=== PATIENT | female | born 1960 | race Caucasian/White ===

== ENCOUNTER 2021-05-17 13:00 | Observation (INO) | payer OTHER ==
[2021-05-17 14:46] LABS: HEMATOCRIT 22.2 % (32.4-45.2); HEMOGLOBIN 7.1 GM/dL (10.7-15.3); MCH 31.2 pg (25.7-33.7); MCHC 32.2 g/dl (32.0-36.0); MEAN PLT VOLUME 7.7 fl (7.5-11.1); PLATELET COUNT 183 10^3/uL (134-434); RBC 2.29 M/mm3 (3.60-5.2); RDW 17.6 % (11.6-15.6); WHITE BLOOD COUNT 13.2 K/mm3 (4.0-10.0)
[2021-05-17 14:52] LABS: INR 1.03 (0.83-1.09); PROTHROMBIN TIME (PATIENT) 11.8 SEC (9.7-13.0)
[2021-05-17 15:09] LABS: ALBUMIN 2.4 g/dl (3.4-5.0); BLOOD UREA NITROGEN 28.9 mg/dL (7-18); CALCIUM 8.6 mg/dL (8.5-10.1)
[2021-05-17 15:13] LABS: CREATININE 4.4 mg/dL (0.55-1.3)
[2021-05-17 15:14] LABS: BILIRUBIN,TOTAL 0.3 mg/dL (0.2-1); TOT PROT 5.8 g/dl (6.4-8.2)
[2021-05-17 15:39] LABS: ANISOCYTOSIS 2+; MACROCYTOSIS 0; PLATELET ESTIMATE NORMAL; TEAR DROP CELLS 1+
[2021-05-17] MEDS ORDERED: POLYETHYLENE GLYCOL (HEALTHYLAX) 3350 17 GM PACKET PO PRN (21:00)
[2021-05-17] MEDS: INSULIN SLIDING SCALE (NOVOLOG) 1 VIAL SQ SCH (21:38)
[2021-05-18 01:12] VITALS: BMI 36.3
[2021-05-18] MEDS: INSULIN SLIDING SCALE (NOVOLOG) 1 VIAL SQ SCH ×4 (06:37→22:27)
[2021-05-18 09:07] LABS: HEMATOCRIT 23.1 % (32.4-45.2); HEMOGLOBIN 7.4 GM/dL (10.7-15.3); MCH 31.7 pg (25.7-33.7); MCHC 32.2 g/dl (32.0-36.0); MEAN CELL VOLUME 98.2 fl (80-96); MEAN PLT VOLUME 6.9 fl (7.5-11.1); PLATELET COUNT 228 10^3/uL (134-434); RBC 2.35 M/mm3 (3.60-5.2); RDW 17.7 % (11.6-15.6)
[2021-05-18 09:14] LABS: CALCIUM 9.2 mg/dL (8.5-10.1)
[2021-05-18 09:20] LABS: CREATININE 4.9 mg/dL (0.55-1.3); PHOSPHOROUS 4.9 mg/dL (2.5-4.9)
[2021-05-18] MEDS: PANTOPRAZOLE 20 MG TABLET PO SCH (11:08)
[2021-05-18 11:31] LABS: ANISOCYTOSIS 0; HELMET CELLS 0; HOWELL-JOLLY BODIES 0; MACROCYTOSIS 0; OVALOCYTE 0; PLATELET ESTIMATE NORMAL; ROULEAU 0; SICKELED CELLS 0; TARGET CELLS 0; TEAR DROP CELLS 0; TOXIC GRANULATION 0
[2021-05-19] MEDS: INSULIN SLIDING SCALE (NOVOLOG) 1 VIAL SQ SCH ×4 (06:01→21:18)
[2021-05-19 09:32] LABS: HEMATOCRIT 23.6 % (32.4-45.2); HEMOGLOBIN 7.3 GM/dL (10.7-15.3); MCH 30.8 pg (25.7-33.7); MCHC 31.1 g/dl (32.0-36.0); MEAN CELL VOLUME 99.2 fl (80-96); MEAN PLT VOLUME 7.1 fl (7.5-11.1); PLATELET COUNT 258 10^3/uL (134-434); RBC 2.38 M/mm3 (3.60-5.2); RDW 17.8 % (11.6-15.6); WHITE BLOOD COUNT 10.7 K/mm3 (4.0-10.0)
[2021-05-19 10:03] LABS: ALBUMIN 2.4 g/dl (3.4-5.0); CALCIUM 8.5 mg/dL (8.5-10.1)
[2021-05-19 10:04] LABS: BLOOD UREA NITROGEN 43.5 mg/dL (7-18)
[2021-05-19 10:07] LABS: CREATININE 6.2 mg/dL (0.55-1.3)
[2021-05-19 10:08] LABS: BILIRUBIN,TOTAL 0.4 mg/dL (0.2-1); TOT PROT 5.8 g/dl (6.4-8.2)
[2021-05-19] MEDS: PANTOPRAZOLE 20 MG TABLET PO SCH (10:37)
[2021-05-19 11:29] LABS: ANISOCYTOSIS 2+; MACROCYTOSIS 0; OVALOCYTE 1+; PLATELET ESTIMATE NORMAL
[2021-05-20] MEDS: INSULIN SLIDING SCALE (NOVOLOG) 1 VIAL SQ SCH ×4 (06:01→22:14)
[2021-05-20] MEDS ORDERED: ALTEPLASE (CATHFLO) 2 MG/2 ML VIAL NR ONE ×2 (06:15)
[2021-05-20 09:17] LABS: HEMATOCRIT 23.5 % (32.4-45.2); HEMOGLOBIN 7.4 GM/dL (10.7-15.3); MCH 30.9 pg (25.7-33.7); MCHC 31.5 g/dl (32.0-36.0); MEAN CELL VOLUME 98.1 fl (80-96); MEAN PLT VOLUME 6.8 fl (7.5-11.1); PLATELET COUNT 245 10^3/uL (134-434); RBC 2.39 M/mm3 (3.60-5.2); RDW 17.6 % (11.6-15.6); WHITE BLOOD COUNT 12.1 K/mm3 (4.0-10.0)
[2021-05-20 09:48] LABS: BLOOD UREA NITROGEN 47.5 mg/dL (7-18)
[2021-05-20 09:50] LABS: CALCIUM 8.2 mg/dL (8.5-10.1); CREATININE 6.8 mg/dL (0.55-1.3)
[2021-05-20] MEDS: PANTOPRAZOLE 20 MG TABLET PO SCH (10:51)
[2021-05-21] MEDS: INSULIN SLIDING SCALE (NOVOLOG) 1 VIAL SQ SCH ×4 (06:22→22:40)
[2021-05-21] MEDS: PANTOPRAZOLE 20 MG TABLET PO SCH (10:14)
[2021-05-22] MEDS: INSULIN SLIDING SCALE (NOVOLOG) 1 VIAL SQ SCH (06:42)
[2021-05-22 08:47] VITALS: BP 122/68; PULSE 88; TEMP 97.9
[2021-05-22] MEDS: PANTOPRAZOLE 20 MG TABLET PO SCH (09:37)
== END 2021-05-22 10:30 ==
LOC: JER 13:00 → JERBED 17:09 → J6S 23:10
PROVIDERS: ADMIT Internal Medicine; ATTEND Internal Medicine
DX: U07.1 COVID-19 (principal); T82.49XA Other complication of vascular dialysis catheter, initial encounter; E11.22 Type 2 diabetes mellitus with diabetic chronic kidney disease; G20 Parkinson's disease; I12.0 Hypertensive chronic kidney disease with stage 5 chronic kidney disease or end stage renal disease; N18.6 End stage renal disease; Z99.2 Dependence on renal dialysis; Z88.0 Allergy status to penicillin; E66.8 Other obesity; Z68.35 Body mass index [BMI] 35.0-35.9, adult; D64.9 Anemia, unspecified; E78.5 Hyperlipidemia, unspecified; J45.909 Unspecified asthma, uncomplicated; Q78.9 Osteochondrodysplasia, unspecified; K21.9 Gastro-esophageal reflux disease without esophagitis
CPT/HCPCS: 36415; 80048; 80053; 82962; 83735; 84100; 85025; 85027; 85610; 85730; 86803; 86850; 86900; 86901; 87340; 93005; 93010; 99285-25; C9803; G0378; J2997; U0003; U0005

== ENCOUNTER 2021-06-11 20:07 | Observation (INO) | payer OTHER ==
[2021-06-11 21:50] LABS: BASO % 0.1 % (0-2.0); EOS % 1.5 % (0-4.5); HEMATOCRIT 20.5 % (32.4-45.2); LYMPH % 5.2 % (8-40); MCH 31.9 pg (25.7-33.7); MCHC 32.1 g/dl (32.0-36.0); MEAN CELL VOLUME 99.2 fl (80-96); MEAN PLT VOLUME 7.9 fl (7.5-11.1); MONO % 4.7 % (3.8-10.2); NEUT % 88.5 % (42.8-82.8); PLATELET COUNT 138 10^3/uL (134-434); RBC 2.07 M/mm3 (3.60-5.2); RDW 19.3 % (11.6-15.6); WHITE BLOOD COUNT 14.7 K/mm3 (4.0-10.0)
[2021-06-11 21:52] LABS: HEMOGLOBIN 6.6 GM/dL (10.7-15.3)
[2021-06-11 21:57] LABS: INR 1.07 (0.83-1.09); PROTHROMBIN TIME (PATIENT) 12.3 SEC (9.7-13.0)
[2021-06-11 21:59] LABS: ACTIVATED PTT 25.8 SECONDS (25.2-36.5)
[2021-06-11 22:04] LABS: CHLORIDE 100 mmol/L (98-107); SODIUM 136 mmol/L (136-145)
[2021-06-11 22:06] LABS: ANION GAP 7 MMOL/L (8-16); BLOOD UREA NITROGEN 19.7 mg/dL (7-18); CALCIUM 8.2 mg/dL (8.5-10.1); CO2 29 mmol/L (21-32); GLUCOSE,RANDOM 171 mg/dL (74-106)
[2021-06-11 22:07] LABS: ALBUMIN 2.6 g/dl (3.4-5.0)
[2021-06-11 22:09] LABS: CREATININE 3.6 mg/dL (0.55-1.3); SGOT/AST 18 U/L (15-37); SGPT/ALT 20 U/L (13-61)
[2021-06-11 22:11] LABS: BILIRUBIN,TOTAL 0.3 mg/dL (0.2-1)
[2021-06-11 22:12] LABS: ALK PHOS 119 U/L (45-117)
[2021-06-12 06:21] VITALS: BMI 38.9
[2021-06-12] MEDS: FAMOTIDINE 20 MG TABLET PO SCH ×2 (09:59→21:15)
[2021-06-12] MEDS: CYANOCOBALAMIN 1,000 MCG TABLET (FP) PO SCH (09:59)
[2021-06-12] MEDS ORDERED: CALCITRIOL 0.25 MCG CAPSULE (FP) PO SCH (10:00)
[2021-06-12] MEDS ORDERED: SODIUM CHLORIDE 250 ML IV PRN (10:50)
[2021-06-12] MEDS: BUDESONIDE/FORMETEROL FUMARATE 160/4.5 mcg INHALER IH SCH ×2 (11:52→21:15)
[2021-06-12] MEDS: VITAMIN B COMPLEX W/C COMBO TABLET (FP) PO SCH (11:52)
[2021-06-12] MEDS: FLUTICASONE PROP 0.05% 16 GM NASAL SPRAY NS SCH ×2 (17:59→21:15)
[2021-06-12] MEDS ORDERED: ATORVASTATIN CA 20 MG TABLET (FP) PO SCH (22:00)
[2021-06-13] MEDS: CYANOCOBALAMIN 1,000 MCG TABLET (FP) PO SCH (09:16)
[2021-06-13] MEDS: FLUTICASONE PROP 0.05% 16 GM NASAL SPRAY NS SCH (09:16)
[2021-06-13] MEDS: VITAMIN B COMPLEX W/C COMBO TABLET (FP) PO SCH (09:16)
[2021-06-13] MEDS: FAMOTIDINE 20 MG TABLET PO SCH (09:17)
[2021-06-13] MEDS: BUDESONIDE/FORMETEROL FUMARATE 160/4.5 mcg INHALER IH SCH (09:17)
[2021-06-13] MEDS ORDERED: NIFEdipine E.R 60 MG TABLET PO SCH (10:00)
[2021-06-13] MEDS ORDERED: METOPROLOL TARTRATE 50 MG TABLET (FP) PO SCH (10:00)
[2021-06-13] MEDS ORDERED: risperiDONE 1 MG TABLET PO SCH (10:00)
[2021-06-13] MEDS ORDERED: ACETAMINOPHEN 325 MG TABLET (FP) PO PRN (11:00)
[2021-06-13 12:33] LABS: HEMATOCRIT 27.3 % (32.4-45.2); HEMOGLOBIN 8.8 GM/dL (10.7-15.3); MCH 31.4 pg (25.7-33.7); MCHC 32.3 g/dl (32.0-36.0); MEAN CELL VOLUME 97.2 fl (80-96); MEAN PLT VOLUME 7.5 fl (7.5-11.1); PLATELET COUNT 118 10^3/uL (134-434); RDW 17.7 % (11.6-15.6); WHITE BLOOD COUNT 9.4 K/mm3 (4.0-10.0)
[2021-06-13 14:48] VITALS: BP 108/53; PULSE 84; TEMP 99.1
== END 2021-06-13 19:08 ==
LOC: JER 20:07 → JERBED 20:21 → J5S 06-12 05:59
PROVIDERS: ADMIT Internal Medicine; ATTEND Internal Medicine
PROC: 30233N1 Transfusion of Nonautologous Red Blood Cells into Peripheral Vein, Percutaneous Approach (ICD-10-PCS; principal; 2021-06-11)
DX: I12.0 Hypertensive chronic kidney disease with stage 5 chronic kidney disease or end stage renal disease (principal); N25.0 Renal osteodystrophy; G20 Parkinson's disease; N18.6 End stage renal disease; Z99.2 Dependence on renal dialysis; E66.8 Other obesity; Z68.38 Body mass index [BMI] 38.0-38.9, adult; E78.5 Hyperlipidemia, unspecified; J45.909 Unspecified asthma, uncomplicated; K21.9 Gastro-esophageal reflux disease without esophagitis; R79.89 Other specified abnormal findings of blood chemistry; R42 Dizziness and giddiness; Z88.0 Allergy status to penicillin
CPT/HCPCS: 36415; 36430; 71045-TC-FY; 80053; 82272; 82550; 84484; 85025; 85027; 85610; 85730; 86850; 86900; 86901; 86922; 93005; 93010; 99285-25; C9803; G0378; J2794; P9058; U0003; U0005